=== PATIENT | female | born 1960 | race Caucasian/White ===

== ENCOUNTER → 2017-07-01 | Outpatient (CLI) | payer OTHER ==
[2017-07-03 12:59] LABS: HPV Genotype 16 Not Detected (NOTDET); HPV Genotype 18 Not Detected (NOTDET)
[2017-07-09 15:12] LABS: HPV High Risk Other Not Detected (NOTDET)
== END ==
LOC: EDSTATUS 09:59 → LAB SHORT 14:59 → LAB 14:59
PROVIDERS: Registered Nurse
DX: Z12.4 Encounter for screening for malignant neoplasm of cervix (principal)
CPT/HCPCS: 87624; G0123

== ENCOUNTER → 2017-08-15 | Outpatient (CLI) | payer OTHER | LOC: LAB SHORT 09:41 → LAB SRC 09:41 | PROVIDERS: Registered Nurse | DX: Z12.4 Encounter for screening for malignant neoplasm of cervix (principal) | CPT/HCPCS: 87624; G0123 ==

== ENCOUNTER → 2018-07-22 | Outpatient (CLI) | payer OTHER ==
[2018-07-22 11:44] LABS: BASOPHILS ABSOLUTE AUTO 0.03 K/mm3 (0.00-0.23); BASOPHILS PERCENT AUTO 0 % (0-2); EOSINOPHILS ABSOLUTE AUTO 0.18 K/mm3 (0.00-0.68); EOSINOPHILS PERCENT AUTO 3 % (0-6); Hematocrit 44.3 % (33.0-51.0); Hemoglobin 15.1 g/dL (11.5-16.0); IMMATURE GRAN ABSOLUTE AUTO 0.02 K/mm3 (0.00-0.10); IMMATURE GRAN PERCENT AUTO 0 % (0-1); LYMPHOCYTES ABSOLUTE AUTO 1.94 K/mm3 (0.84-5.20); LYMPHOCYTES PERCENT AUTO 27 % (21-46); MONOCYTES ABSOLUTE AUTO 0.46 K/mm3 (0.16-1.47); MONOCYTES PERCENT AUTO 6 % (4-13); Mean Corpuscular HGB 31.5 pg (26.0-34.0); Mean Corpuscular HGB Conc 34.1 g/dL (31.5-36.5); Mean Corpuscular Volume 93 fL (80-100); Mean Platelet Volume 10.1 fL (9.1-12.4); NEUTROPHILS ABSOLUTE AUTO 4.56 K/mm3 (1.96-9.15); NEUTROPHILS PERCENT AUTO 63 % (41-73); Platelet Count 300 K/mm3 (150-400); RDW Coefficient Variation 12.2 % (11.7-14.2); RDW Standard Deviation 41.9 fL (35.1-46.3); Red Blood Cell Count 4.79 M/mm3 (3.80-5.20); White Blood Cell Count 7.19 K/mm3 (4.00-11.30)
[2018-07-22 12:29] LABS: Alanine Aminotransfer (ALT/SGP 20 U/L (12-78); Albumin, Blood 4.1 g/dL (3.4-5.0); Albumin/Globulin Ratio 1.2 (0.8-1.8); Alk Phos 70 U/L (50-136); Anion Gap 6 mmol/L (6-16); Aspartate Aminotrans (AST/SGOT 19 U/L (12-37); Bilirubin, Total 0.4 mg/dL (0.1-1.0); Blood Urea Nitrogen 14 mg/dL (8-24); CO2, Blood 31 mmol/L (21-32); Calcium, Blood 9.2 mg/dL (8.5-10.1); Chloride, Blood 104 mmol/L (98-108); Creatinine, Blood 0.88 mg/dL (0.40-1.00); Globulin, Blood 3.4 g/dL (2.2-4.0); Glomerular Filtration Rate >60 (60-); Glucose, Blood 88 mg/dL (70-99); Potassium, Blood 4.1 mmol/L (3.5-5.5); Sodium, Blood 141 mmol/L (136-145); Total Protein, Blood 7.5 g/dL (6.4-8.2); Troponin I <0.015 ng/mL (0.000-0.040)
== END | disposition home or self-care (01) ==
LOC: LAB EV 11:36 → LAB SHORT 11:36
PROVIDERS: Physician Assistant
DX: R07.9 Chest pain, unspecified (principal)
CPT/HCPCS: 80053; 84484; 85025; 85379

== ENCOUNTER 2021-01-26 11:26 | Day surgery (SDC) | payer OTHER ==
[~2021-01-26] VITALS: Ht 165.1 cm; Wt 69.5 kg
== END 2021-01-26 14:38 | disposition home or self-care (01) ==
LOC: ORSCSDS 11:26
PROVIDERS: Orthopaedic Surgery
PROC: 01N50ZZ Release Median Nerve, Open Approach (ICD-10-PCS; principal; 2021-01-26 13:00)
DX: G56.02 Carpal tunnel syndrome, left upper limb (principal)
CPT/HCPCS: J0690; J2250; J2704; J3010; J7120

== ENCOUNTER 2021-03-09 13:25 | Day surgery (SDC) | payer OTHER | END 2021-03-09 14:25 | disposition home or self-care (01) | LOC: ORSCSDS 13:25 | DX: G56.01 Carpal tunnel syndrome, right upper limb (principal); Z53.9 Procedure and treatment not carried out, unspecified reason ==

== ENCOUNTER → 2021-03-25 | Outpatient (CLI) | payer OTHER ==
[2021-03-25 10:37] LABS: Alanine Aminotransfer (ALT/SGP 20 U/L (12-78); Albumin, Blood 3.8 g/dL (3.4-5.0); Albumin/Globulin Ratio 1.1 (0.8-1.8); Alk Phos 112 U/L (40-126); Anion Gap 11 mmol/L (6-16); Aspartate Aminotrans (AST/SGOT 16 U/L (12-37); Bilirubin, Total 0.4 mg/dL (0.1-1.0); Blood Urea Nitrogen 14 mg/dL (8-24); Bun/Creatinine Ratio 18.7 (12.0-20.0); CO2, Blood 28 mmol/L (21-32); Calcium, Blood 9.5 mg/dL (8.5-10.1); Chloride, Blood 105 mmol/L (98-108); Creatinine, Blood 0.75 mg/dL (0.40-1.00); Globulin, Blood 3.5 g/dL (2.2-4.0); Glomerular Filtration Rate >60 (60-); Glucose, Blood 108 mg/dL (70-99); Potassium, Blood 4.1 mmol/L (3.5-5.5); Sodium, Blood 144 mmol/L (136-145); Total Protein, Blood 7.3 g/dL (6.4-8.2)
== END | disposition home or self-care (01) ==
LOC: LAB SHORT 10:18
PROVIDERS: Physician Assistant Medical
DX: M25.50 Pain in unspecified joint (principal)
CPT/HCPCS: 80053; 85651; 86140; 86430

== ENCOUNTER → 2021-08-28 | Outpatient (CLI) | payer OTHER | END | disposition home or self-care (01) | LOC: LAB 14:20 → LAB SHORT 14:20 | DX: M65.849 Other synovitis and tenosynovitis, unspecified hand (principal) | CPT/HCPCS: 85651 ==

== ENCOUNTER 2022-04-23 05:41 | Day surgery (SDC) | payer OTHER ==
[~2022-04-23] VITALS: Ht 165.1 cm; Wt 67.2 kg
[~2022-04-23 05:41] MED LIST: CERTAVITE PO; DICLOFENAC SOD100 G1 TOP; FOLI1 PO; METTREX2.5 PO; NAPR500 PO; PRAV20 PO
--- NOTE | 2022-04-23 08:26 | NUR ---
04/23/[address] PULLED ANCEF 2G FROM HIS PIXIS AND GAVE TO PT @ [phone]
--- NOTE | 2022-04-23 19:40 | NUR ---
SHIFT SUMMARY PATIENT NEW ADMIT TO UNIT POD [address] NGO. DROWSY ON ARRIVAL BUT ORIENTED AND RESPONDS TO QUESTIONS APPROPRIATELY. POST OP HAS EXPERIENCED NAUSEA OFF AND ON ALL AFTERNOON. MEDICATED PER EMAR. FELT WEAK, MILD HEADACHE, SLIGHT LIGHT-HEADEDNESS. BP HAS BEEN SOFT IN THE 90S SYSTOLIC. IF FLUID HAS BEEN RUNNING. UNABLE TO URINATE, BLADDER SCANNED SHOWED OVER 300 ML. STRAIGHT CATH 225 OUTPUT AT END OF SHIFT. 1 EPISODE OF VOMITING AT END OF SHIFT. SBA WITH FWW TO AMBULATE IN ROOM, SAT UP IN RECLINER FOR A COUPLE HOURS. AQUACEL TO RIGHT HIP C/D/I. RATES HIP PAIN 04/16. DAUGHTERS VISITED IN EVENING. REPORT GIVEN TO OVEN BUILDER RN.
[2022-04-24 04:27] LABS: BASOPHILS ABSOLUTE AUTO 0.01 K/mm3 (0.00-0.23); BASOPHILS PERCENT AUTO 0 % (0-2); EOSINOPHILS ABSOLUTE AUTO 0.01 K/mm3 (0.00-0.68); EOSINOPHILS PERCENT AUTO 0 % (0-6); Hematocrit 28.3 % (33.0-51.0); Hemoglobin 10.1 g/dL (11.5-16.0); IMMATURE GRAN ABSOLUTE AUTO 0.07 K/mm3 (0.00-0.10); IMMATURE GRAN PERCENT AUTO 1 % (0-1); LYMPHOCYTES ABSOLUTE AUTO 1.44 K/mm3 (0.84-5.20); LYMPHOCYTES PERCENT AUTO 10 % (21-46); MONOCYTES ABSOLUTE AUTO 0.98 K/mm3 (0.16-1.47); MONOCYTES PERCENT AUTO 7 % (4-13); Mean Corpuscular HGB 31.7 pg (26.0-34.0); Mean Corpuscular HGB Conc 35.7 g/dL (31.5-36.5); Mean Corpuscular Volume 89 fL (80-100); Mean Platelet Volume 9.8 fL (9.1-12.4); NEUTROPHILS ABSOLUTE AUTO 11.87 K/mm3 (1.96-9.15); NEUTROPHILS PERCENT AUTO 83 % (41-73); Platelet Count 307 K/mm3 (150-400); RDW Coefficient Variation 14.6 % (11.7-14.2); RDW Standard Deviation 47.3 fL (35.1-46.3); Red Blood Cell Count 3.19 M/mm3 (3.80-5.20); White Blood Cell Count 14.38 K/mm3 (4.00-11.30)
[2022-04-24 05:00] LABS: Bun/Creatinine Ratio 20.7 (12.0-20.0); Calcium, Blood 8.3 mg/dL (8.5-10.1); Creatinine, Blood 0.58 mg/dL (0.40-1.00); Potassium, Blood 3.8 mmol/L (3.5-5.5)
--- NOTE | 2022-04-24 05:53 | NUR ---
INSPECTOR FINISHING SUMMARY PT IS POD 0 FOR R VANE. PT HAS BEEN ABLE TO WALK IN THE HALLS WITH STANDBY ASSIST AND A FWW. AQUACEL DRESSING TO R HIP C/D/I. PT DOES REPORT SOME OCCASIONAL SPASMS TO SURGICAL AREA. PT HAS BEEN UNABLE TO URINATE ON HER OWN THROUGH THE SHIFT SO STRAIGHT CATH PERFORMED AND DRAINED >1000 ML OF YELLOW URINE. PT WAS ALSO STRAIGHT CATHED BY DAY SHIFT RN JUST BEFORE SHIFT CHANGE. SBP 90-100'S, OTHER VSS. WILL CONTINUE TO MONITOR.
--- NOTE | 2022-04-24 08:57 | NUR ---
NOTIFIED DR. NGO OF STRAIGHT CATH AGAIN THIS AM. ALSO NOTIFIED OF BLOOD PRESSURES RUNNING LOW. STARTED IV FLUIDS AT THIS TIME. PT DENIES FEELING LIGHT HEADED OR DIZZY, REMAINS ASYMPTOMATIC. R HIP SWOLLEN COMPARED TO LEFT. DRESSING CDI, NO BRUISING NOTED.
--- NOTE | 2022-04-24 16:18 | NUR ---
THIS RN SPOKE WITH ANESTHESIOLOGIST ABOUT PT'S INABILITY TO URINATE. PT DID HAVE A SPINAL BUT HAS REGAINED FULL SENSATION IN HER LEGS AND HAS NO TROUBLE WALKING. ANESTHESIOLOGIST AWARE OF CURRENT SITUATION AND HAS NO SUGGESTIONS.
--- NOTE | 2022-04-24 18:09 | NUR ---
SHIFT SUMMARY PT POD #1 FOR R TOTAL HIP. AQUACEL DRESSINGS IN PLACE AND CDI. TREATED FOR PAIN PER EMR. PT'S BP REMAINS LOW BUT MAP HAS IMPROVED. PT HAS YET TO VOID AND HAS HAD TO BE STRAIGHT CATHED THIS SHIFT. HOSPITALIST CONSULTED AND ANESTHESIOLOGIST NOTIFIED. PHYSICIAN SPOKE WITH UROLOGIST AND PT POSSIBLY HAS "A SHOCKED BLADDER" AND WILL NEED A BUSCH PLACED, WHICH SHE WILL POSSIBLY GO HOME WITH.
[2022-04-25 03:48] LABS: BASOPHILS ABSOLUTE AUTO 0.02 K/mm3 (0.00-0.23); BASOPHILS PERCENT AUTO 0 % (0-2); EOSINOPHILS ABSOLUTE AUTO 0.08 K/mm3 (0.00-0.68); EOSINOPHILS PERCENT AUTO 1 % (0-6); Hematocrit 28.3 % (33.0-51.0); Hemoglobin 9.8 g/dL (11.5-16.0); IMMATURE GRAN ABSOLUTE AUTO 0.03 K/mm3 (0.00-0.10); IMMATURE GRAN PERCENT AUTO 0 % (0-1); LYMPHOCYTES ABSOLUTE AUTO 1.46 K/mm3 (0.84-5.20); LYMPHOCYTES PERCENT AUTO 16 % (21-46); MONOCYTES ABSOLUTE AUTO 0.76 K/mm3 (0.16-1.47); MONOCYTES PERCENT AUTO 9 % (4-13); Mean Corpuscular HGB 31.1 pg (26.0-34.0); Mean Corpuscular HGB Conc 34.6 g/dL (31.5-36.5); Mean Corpuscular Volume 90 fL (80-100); Mean Platelet Volume 10.1 fL (9.1-12.4); NEUTROPHILS ABSOLUTE AUTO 6.64 K/mm3 (1.96-9.15); NEUTROPHILS PERCENT AUTO 74 % (41-73); Platelet Count 268 K/mm3 (150-400); RDW Coefficient Variation 15.1 % (11.7-14.2); RDW Standard Deviation 49.4 fL (35.1-46.3); Red Blood Cell Count 3.15 M/mm3 (3.80-5.20); White Blood Cell Count 8.99 K/mm3 (4.00-11.30)
[2022-04-25 04:22] LABS: Albumin, Blood 2.7 g/dL (3.4-5.0); Anion Gap 5 mmol/L (6-16); Blood Urea Nitrogen 10 mg/dL (8-24); Bun/Creatinine Ratio 13.4 (12.0-20.0); CO2, Blood 28 mmol/L (21-32); Calcium, Blood 7.7 mg/dL (8.5-10.1); Chloride, Blood 103 mmol/L (98-108); Creatinine, Blood 0.75 mg/dL (0.40-1.00); Glomerular Filtration Rate 91 (60-); Glucose, Blood 104 mg/dL (70-99); Potassium, Blood 3.8 mmol/L (3.5-5.5); Sodium, Blood 136 mmol/L (136-145)
--- NOTE | 2022-04-25 05:06 | NUR ---
CHEMICAL PROCESS EQUIPMENT OPERATOR SUMMARY POD 1 FOR R VANE. PT HAS DONE WELL WITH AMBULATION USING A FWW AND GB. PT COMPLAINING OF R LEG SPASMS THAT DID NOT IMPROVE WITH REPOSITIONING AND PAIN MEDICATIONS. SPOKE WITH LAY CRAWFORD REGARDING SPASMS AND RECIEVED ORDER FOR 1X DOSE OF FLEXERIL, HOWEVER WHEN THIS RN WENT IN TO GIVE MED PT STATED SHE WASN'T HAVING SPASMS ANYMORE AND DECLINED THE NEED FOR THE FLEXERIL. BUSCH CATH PATENT AND DRAINING CLEAR YELLOW URINE, PT TO DC WITH CATHETER. VSS, WILL CONTINUE TO MONITOR.
--- NOTE | 2022-04-25 07:47 | NUR ---
MANUAL BLOOD PRESSURE DONE PER DR. BAUER REQUEST. , PT REMAINS ASYMPTOMATIC.
--- NOTE | 2022-04-25 10:03 | NUR ---
manual bp taken after midodrine. 126/72 at this time. pt ambulated well, in the halls.
--- NOTE | 2022-04-25 10:57 | NUR ---
pt out of room for MRI at this time.
[2022-04-25] MEDS ORDERED: Percocet 5-3251 EACH PO (12:42)
[2022-04-25] MEDS ORDERED: TAMS.4ER PO (12:42)
[2022-04-25] MEDS ORDERED: ASPI81CH PO (12:43)
[2022-04-25] MEDS ORDERED: MIDO5 PO (12:44)
--- NOTE | 2022-04-25 14:34 | NUR ---
DISCHARGE POD 2 TOTAL HIP, RIGHT PT [id number], AMBULATING WELL DURING SHIFT. PT CONTINUED TO HAVE SOFT BP'S, STARTED MIDODRINE AND BLOOD PRESSURES IMPROVED. PT DISCHARGE WITH BUSCH, WENT OVER INSTRUCTIONS AT LENGTH ABOUT MANAGING BUSCH. PT EXPRESSED UNDERSTANDING. EXTRA AQUACEL SENT WITH PATIENT. PT PLANS TO FOLLOW UP WITH PCP, UROLOGY AND A NEUROSEURGON TO DISCUSS MRI RESULTS. PT EXPRESSED UNDERSTANDING AND HAD ME GO OVER DISCHARGE WITH DAUGHTER IN ROOM.
[2022-04-26] MEDS ORDERED: ONDA4ODT MM ×2 (19:23→19:54)
[2022-04-26] MEDS ORDERED: METO10 PO ×2 (19:23→19:54)
[2022-04-26] MEDS ORDERED: ALERTNESS AID200 MG PO ×2 (19:23→19:54)
[2022-04-26] MEDS ORDERED: DOCUZEN 8.6-501 EACH PO ×2 (19:25→19:54)
[2022-04-26] MEDS ORDERED: MIRALAX17 GM PO ×2 (19:25→19:54)
== END 2022-04-25 14:23 | disposition home or self-care (01) ==
LOC: ORSCMMR 05:41 → SURS 05:41 → ORSCMMR 07:30 → ORD 07:30 → SURS 10:46 → ORSCMMR 04-25 14:23
PROVIDERS: Family Medicine; Orthopaedic Surgery
PROC: 0SR90JZ Replacement of Right Hip Joint with Synthetic Substitute, Open Approach (ICD-10-PCS; principal; 2022-04-23 07:30)
DX: M16.11 Unilateral primary osteoarthritis, right hip (principal); M87.9 Osteonecrosis, unspecified; F32.A Depression, unspecified; E78.5 Hyperlipidemia, unspecified; E87.1 Hypo-osmolality and hyponatremia; D64.9 Anemia, unspecified; I95.9 Hypotension, unspecified; R33.9 Retention of urine, unspecified; Z79.899 Other long term (current) drug therapy
CPT/HCPCS: 36415; 72158; 72170; 80048; 80069; 85025; 97110; 97116; 97161; 97165; 97530; 97535; A9270; A9579; C1776; J0171; J0690; J0735; J1100; J1885; J2250; J2370; J2405; J2704; J2765; J2795; J3010; J3370; J7120

== ENCOUNTER 2022-04-26 12:59 | Emergency (ER) | payer OTHER ==
[~2022-04-26] VITALS: Ht 165.1 cm; Wt 65.8 kg
[~2022-04-26 12:59] MED LIST changes: +ASPI81CH PO; +MIDO5 PO; +Percocet 5-3251 EACH PO; +TAMS.4ER PO
[2022-04-26 13:27] LABS: BASOPHILS ABSOLUTE AUTO 0.02 K/mm3 (0.00-0.23); BASOPHILS PERCENT AUTO 0 % (0-2); EOSINOPHILS ABSOLUTE AUTO 0.02 K/mm3 (0.00-0.68); EOSINOPHILS PERCENT AUTO 0 % (0-6); IMMATURE GRAN ABSOLUTE AUTO 0.03 K/mm3 (0.00-0.10); IMMATURE GRAN PERCENT AUTO 0 % (0-1); LYMPHOCYTES ABSOLUTE AUTO 1.11 K/mm3 (0.84-5.20); LYMPHOCYTES PERCENT AUTO 12 % (21-46); MONOCYTES ABSOLUTE AUTO 0.63 K/mm3 (0.16-1.47); MONOCYTES PERCENT AUTO 7 % (4-13); Mean Corpuscular HGB 31.5 pg (26.0-34.0); Mean Corpuscular HGB Conc 34.5 g/dL (31.5-36.5); Mean Corpuscular Volume 92 fL (80-100); Mean Platelet Volume 10.2 fL (9.1-12.4); NEUTROPHILS ABSOLUTE AUTO 7.86 K/mm3 (1.96-9.15); NEUTROPHILS PERCENT AUTO 81 % (41-73); Platelet Count 316 K/mm3 (150-400); RDW Coefficient Variation 15.2 % (11.7-14.2); RDW Standard Deviation 51.2 fL (35.1-46.3); Red Blood Cell Count 3.17 M/mm3 (3.80-5.20); White Blood Cell Count 9.67 K/mm3 (4.00-11.30)
[2022-04-26 13:42] LABS: Albumin, Blood 2.9 g/dL (3.4-5.0); Albumin/Globulin Ratio 0.9 (0.8-1.8); Bilirubin, Total 0.5 mg/dL (0.1-1.0); Bun/Creatinine Ratio 19.4 (12.0-20.0); Calcium, Blood 8.7 mg/dL (8.5-10.1); Creatinine, Blood 0.62 mg/dL (0.40-1.00); Globulin, Blood 3.2 g/dL (2.2-4.0); Potassium, Blood 3.6 mmol/L (3.5-5.5); Total Protein, Blood 6.1 g/dL (6.4-8.2)
[2022-04-26] MEDS ORDERED: ONDA4ODT MM ×3 (19:23→19:54)
[2022-04-26] MEDS ORDERED: ALERTNESS AID200 MG PO ×3 (19:23→19:54)
[2022-04-26] MEDS ORDERED: METO10 PO ×3 (19:23→19:54)
[2022-04-26] MEDS ORDERED: DOCUZEN 8.6-501 EACH PO ×3 (19:25→19:54)
[2022-04-26] MEDS ORDERED: MIRALAX17 GM PO ×3 (19:25→19:54)
== END 2022-04-26 19:44 | disposition home or self-care (01) ==
LOC: ER 12:59
PROVIDERS: Physician Assistant
DX: R11.2 Nausea with vomiting, unspecified (principal); R51.9 Headache, unspecified; R03.0 Elevated blood-pressure reading, without diagnosis of hypertension; E86.0 Dehydration; Z79.899 Other long term (current) drug therapy; Z88.6 Allergy status to analgesic agent; Z79.82 Long term (current) use of aspirin
CPT/HCPCS: 36415; 74018; 80053; 83690; 83735; 85025; J1200; J1885; J2405; J2765; J7030

== ENCOUNTER → 2023-10-23 | Outpatient (CLI) | payer OTHER ==
[~2023-10-23] MED LIST changes: +ALERTNESS AID200 MG PO; +DOCUZEN 8.6-501 EACH PO; +METO10 PO; +MIRALAX17 GM PO; +ONDA4ODT MM
[2023-10-29 17:17] LABS: HPV HIGH RISK BY TMA Not Detected; HPV SOURCE Cervical
== END | disposition home or self-care (01) ==
LOC: LAB SHORT 11:57 → LAB 11:57
PROVIDERS: Family Medicine
DX: Z01.419 Encounter for gynecological examination (general) (routine) without abnormal findings (principal)
CPT/HCPCS: 87624; G0123

== ENCOUNTER → 2024-01-15 | Outpatient (CLI) | payer OTHER ==
[2024-01-15 19:23] LABS: Microalb/Creat Ratio UR, Rand Unable to Calculate mg/g (0.000-30.000); Microalbumin, Random Urine <5.000 mg/L (0.000-20.000)
== END ==
LOC: LAB 14:50 → LAB SHORT 14:50
PROVIDERS: Family Medicine
DX: R03.0 Elevated blood-pressure reading, without diagnosis of hypertension (principal)
CPT/HCPCS: 82043; 82570

== ENCOUNTER → 2025-03-10 | Outpatient (CLI) | payer OTHER ==
[2025-03-10 16:25] LABS: BASOPHILS ABSOLUTE AUTO 0.03 K/mm3 (0.00-0.23); BASOPHILS PERCENT AUTO 1 % (0-2); EOSINOPHILS ABSOLUTE AUTO 0.18 K/mm3 (0.00-0.68); EOSINOPHILS PERCENT AUTO 3 % (0-6); Hematocrit 42.6 % (33.0-51.0); Hemoglobin 14.1 g/dL (11.5-16.0); IMMATURE GRAN ABSOLUTE AUTO 0.01 K/mm3 (0.00-0.10); IMMATURE GRAN PERCENT AUTO 0 % (0-1); LYMPHOCYTES ABSOLUTE AUTO 1.47 K/mm3 (0.84-5.20); LYMPHOCYTES PERCENT AUTO 24 % (21-46); MONOCYTES ABSOLUTE AUTO 0.68 K/mm3 (0.16-1.47); MONOCYTES PERCENT AUTO 11 % (4-13); Mean Corpuscular HGB Conc 33.1 g/dL (31.5-36.5); Mean Corpuscular Volume 98 fL (80-100); NEUTROPHILS ABSOLUTE AUTO 3.71 K/mm3 (1.96-9.15); NEUTROPHILS PERCENT AUTO 61 % (41-73); NRBC ABSOLUTE 0.00 K/mm3 (0.00-0.02); NRBC Auto 0.0 /100 WBC (0.0-0.2); Platelet Count 329 K/mm3 (150-400); RDW Coefficient Variation 13.9 % (11.7-14.2); RDW Standard Deviation 49.9 fL (35.1-46.3)
[2025-03-10 19:08] LABS: Alanine Aminotransfer (ALT/SGP 34 U/L (12-78); Albumin, Blood 4.1 g/dL (3.4-5.0); Albumin/Globulin Ratio 1.4 (0.8-1.8); Anion Gap 6 mmol/L (3-11); Aspartate Aminotrans (AST/SGOT 21 U/L (12-37); Bilirubin, Total 0.3 mg/dL (0.1-1.0); Blood Urea Nitrogen 11 mg/dL (8-24); CHOL/HDL RATIO 3.5; CO2, Blood 31 mmol/L (21-32); Calcium, Blood 9.1 mg/dL (8.5-10.1); Chloride, Blood 105 mmol/L (98-108); Cholesterol 202 mg/dL (50-200); Creatinine, Blood 0.84 mg/dL (0.40-1.00); Globulin, Blood 3.0 g/dL (2.2-4.0); Glucose, Blood 92 mg/dL (70-99); HDL Cholesterol 57 mg/dL (>39); LDL/HDL RATIO 1.8; Low Density Lipoprotein Chol 102 mg/dL (0-110); Potassium, Blood 3.9 mmol/L (3.5-5.5); Sodium, Blood 138 mmol/L (136-145); Total Protein, Blood 7.1 g/dL (6.4-8.2); Triglycerides 216 mg/dL (30-160); Very Low Density Lipoprot Chol 43 mg/dL (6-32)
[2025-03-14 09:43] LABS: HIV 1,2 COMBO ANTIGEN/ANTIBODY Negative (Negative)
== END ==
LOC: LAB SHORT 14:26 → LAB 14:26
PROVIDERS: Student in an Organized Health Care Education/Training Program
DX: Z11.4 Encounter for screening for human immunodeficiency virus [HIV] (principal); E78.2 Mixed hyperlipidemia; Z79.899 Other long term (current) drug therapy; Z83.3 Family history of diabetes mellitus
CPT/HCPCS: 80053; 80061; 83036; 85025; 87389